=== PATIENT | female | born 1980 | race Asian ===

== ENCOUNTER 2018-02-22 13:13 | Emergency (ER) | payer OTHER ==
[~2018-02-22] VITALS: Ht 157.5 cm; Wt 60.8 kg
[2018-02-22 13:27] VITALS: BP_SYST 133
[2018-02-22 14:11] LABS: BILIRUBIN,URINE NEGATIVE (NEGATIVE); BLOOD, URINE NEGATIVE (NEGATIVE); CLARITY/URINE CLEAR (CLEAR); COLOR,URINE YELLOW (YELLOW); GLUCOSE,URINE NEGATIVE (NEGATIVE); KETONES,URINE NEGATIVE (NEGATIVE); LEUKOCYTE ESTERASE ,URINE NEGATIVE (NEGATIVE); NITRITE, URINE NEGATIVE (NEGATIVE); PROTEIN URINE NEGATIVE (NEGATIVE); UROBILINOGEN,URINE 0.2 (0.2-1.0)
[2018-02-22 14:17] LABS: CALCIUM 9.2 mg/dL (8.4-11.0); CREATININE 0.85 mg/dL (0.55-1.30); POTASSIUM 4.2 mmol/L (3.5-5.1)
[2018-02-22 14:28] LABS: ALBUMIN 3.8 g/dL (3.4-4.8); TOTAL BILIRUBIN 0.3 mg/dL (0.0-1.0)
[2018-02-22 14:30] LABS: HEMATOCRIT 38.3 % (36-48); HEMOGLOBIN 12.6 g/dL (12.0-16.0); MEAN CORPUSCULAR HEMOGLOBIN 29 pg (27-31); MEAN CORPUSCULAR HGB CONC 33 % (32-36); MEAN CORPUSCULAR VOLUME 89 fL (79.0-98.0); PLATELET COUNT (AUTO) 291 K/uL (130-430); RED CELL DISTRIBUTION WIDTH 12.6 % (9.0-15.0); WHITE BLOOD COUNT (AUTO) 8.2 K/uL (4.8-10.8)
[2018-02-22 15:01] LABS: BAND % (MANUAL) 3 % (0-6); BASOPHILS % (MANUAL) 0 % (0-2); EOSINOPHILS % (MANUAL) 0 % (0-7); LYMPHOCYTES % (MANUAL) 32 % (20-46); MONOCYTES % (MANUAL) 5 % (0-11)
[2018-02-22 15:43] VITALS: BP_SYST 133
== END 2018-02-22 15:43 | disposition home or self-care (01) ==
LOC: SED 13:13
DX: O34.81 Maternal care for other abnormalities of pelvic organs, first trimester (principal); R19.09 Other intra-abdominal and pelvic swelling, mass and lump; R03.0 Elevated blood-pressure reading, without diagnosis of hypertension; Z3A.01 Less than 8 weeks gestation of pregnancy
CPT/HCPCS: 36415; 76801; 76817; 80053; 81003; 84702-TC; 85007; 85027; 86901; 99285

== ENCOUNTER 2018-02-24 11:45 | Outpatient (CLI) | payer OTHER | END 2018-02-24 18:53 | disposition home or self-care (01) | LOC: SLB 11:45 | PROVIDERS: ATTEND Specialist | DX: N92.6 Irregular menstruation, unspecified (principal) | CPT/HCPCS: 36415; 84144; 84702-TC ==

== ENCOUNTER 2018-03-01 16:40 | Outpatient (CLI) | payer OTHER | END 2018-03-01 18:59 | disposition home or self-care (01) | LOC: SLB 16:40 | PROVIDERS: ATTEND Specialist | DX: O02.1 Missed abortion (principal) | CPT/HCPCS: 36415; 84702-TC; 84703 ==

== ENCOUNTER 2018-03-16 19:07 | Outpatient (CLI) | payer OTHER ==
[2018-03-16 19:23] LABS: HEMATOCRIT 41.5 % (36-48); HEMOGLOBIN 13.2 g/dL (12.0-16.0)
== END 2018-03-16 20:47 | disposition home or self-care (01) ==
LOC: SLB 19:07
PROVIDERS: ATTEND Specialist
DX: O03.9 Complete or unspecified spontaneous abortion without complication (principal)
CPT/HCPCS: 36415; 83051; 84702-TC; 85014-TC

== ENCOUNTER 2018-05-12 10:00 | Day surgery (SDC) | payer OTHER ==
[2018-05-11 13:17] LABS: HEMATOCRIT 39.7 % (36-48); HEMOGLOBIN 13.1 g/dL (12.0-16.0); MEAN CORPUSCULAR HEMOGLOBIN 30 pg (27-31); MEAN CORPUSCULAR HGB CONC 33 % (32-36); MEAN CORPUSCULAR VOLUME 89 fL (79.0-98.0); RED BLOOD CELL COUNT(AUTO) 4.46 MIL/uL (4.2-6.2); WHITE BLOOD COUNT (AUTO) 7.5 K/uL (4.8-10.8)
[2018-05-11 13:18] LABS: BASOPHILS % (AUTO) 0.4 % (0.0-2.0); EOSINOPHILS # (AUTO) 0.2 K/uL (0.0-0.4); EOSINOPHILS % (AUTO) 2.3 % (0.0-4.0); LYMPHOCYTES # (AUTO) 2.1 K/uL (1.0-5.5); LYMPHOCYTES % (AUTO) 28.7 % (20.5-51.5); MONOCYTES # (AUTO) 0.7 K/uL (0.0-1.0); MONOCYTES % (AUTO) 8.8 % (1.7-9.3); NEUTROPHILS # (AUTO) 4.5 K/uL (1.8-7.7); NEUTROPHILS % (AUTO) 59.8 % (40.0-70.0); PLATELET COUNT (AUTO) 270 K/uL (130-430); RED CELL DISTRIBUTION WIDTH 12.6 % (9.0-15.0)
[2018-05-11 13:55] LABS: CLARITY/URINE CLEAR (CLEAR); COLOR,URINE YELLOW (YELLOW); GLUCOSE,URINE NEGATIVE (NEGATIVE); KETONES,URINE NEGATIVE (NEGATIVE); PROTEIN URINE NEGATIVE (NEGATIVE)
[2018-05-11 13:56] LABS: BILIRUBIN,URINE NEGATIVE (NEGATIVE); BLOOD, URINE TRACE (NEGATIVE); LEUKOCYTE ESTERASE ,URINE NEGATIVE (NEGATIVE); NITRITE, URINE NEGATIVE (NEGATIVE); UROBILINOGEN,URINE 0.2 (0.2-1.0)
[2018-05-11 14:16] LABS: BACTERIA,URINE FEW /HPF (None Seen); RBC,URINE 0-3 /HPF (0-3); WBC,URINE 0-3 /HPF (0-3)
[2018-05-11 14:17] LABS: CALCIUM OXALATE CRYSTALS,UR 0-10 /HPF (None Seen); MUCUS,URINE None Seen /LPF (None Seen)
[~2018-05-12] VITALS: Ht 157.5 cm; Wt 60.8 kg
[~2018-05-12 10:00] MED LIST: CEFAZOLIN SOD 1 GM in D5W 50 ML IV ONE
[2018-05-12] MEDS ORDERED: WATER FOR IRRIGATION,STERILE 1,000 ML IRRIG.SOLN IR ONE (17:55)
[2018-05-12] MEDS ORDERED: fentaNYL CITRATE/PF 100 MCG/2 ML AMP IVP ONE (17:55)
[2018-05-12] MEDS ORDERED: ceFAZolin SODIUM 1 GM VIAL IV ONE (17:55)
[2018-05-12] MEDS ORDERED: OXYTOCIN 10 UNIT/ML VIAL IV ONE (17:55)
[2018-05-12] MEDS ORDERED: ROPIVACAINE HCL/PF 0.2% (NAROPIN) 200 ML PLAST..BAG EP ONE (17:55)
[2018-05-12] MEDS ORDERED: MIDAZOLAM HCL 5 MG/5 ML VIAL IVP ONE (17:55)
[2018-05-12] MEDS ORDERED: SEVOFLURANE 15 MIN GAS INH ONE (17:55)
[2018-05-12] MEDS ORDERED: ONDANSETRON HCL 4 MG/2 ML VIAL IVP ONE (17:55)
[2018-05-12] MEDS ORDERED: NS 1000 ML IV.SOLN IV ONE (17:55)
[2018-05-12] MEDS ORDERED: BUPIVACAINE /PF 0.5% 30 ML VIAL INJ ONE (17:55)
[2018-05-12] MEDS ORDERED: ROCURONIUM BROMIDE 10 MG/ML (ZEMURON) IV ONE (17:55)
[2018-05-12] MEDS ORDERED: PROPOFOL 200MG/ 20ML VIAL (DIPRIVAN) IV ONE (17:55)
[2018-05-12] MEDS ORDERED: LR 1,000 ML IV.SOLN IV ONE (17:55)
[2018-05-12] MEDS ORDERED: GLYCOPYRROLATE 1 MG/5 ML VIAL IJ ONE (17:55)
[2018-05-12] MEDS ORDERED: PHENYLEPHRINE HCL 10 MG/ML VIAL (NEOSYNEPHRINE) IV ONE (17:55)
[2018-05-12] MEDS ORDERED: LIDOCAINE 2%, 20 ML MDV INJ ONE (17:55)
[2018-05-12] MEDS ORDERED: KETOROLAC TROMETHAMINE 30 MG VIAL IVP ONE (17:55)
[2018-05-12] MEDS ORDERED: KETOROLAC TROMETHAMINE 30 MG VIAL IVP PRN (18:45)
[2018-05-12] MEDS ORDERED: fentaNYL CITRATE/PF 100 MCG/2 ML AMP IVP PRN ×2 (18:45)
[2018-05-12] MEDS ORDERED: ONDANSETRON HCL 4 MG/2 ML VIAL IVP PRN ×2 (18:45→20:15)
[2018-05-12] MEDS ORDERED: OXYCODONE/ACETAMINOPHEN 5-325 TABLET PO PRN ×2 (20:15)
[2018-05-12] MEDS ORDERED: HYDROcodone/ACETAMIN 5-325 MG TAB (NORCO/ VICODIN) PO PRN (20:15)
[2018-05-12] MEDS ORDERED: TEMAZEPAM 15 MG CAPSULE PO SCH (21:00)
[2018-05-12] MEDS ORDERED: SIMETHICONE 80 MG TAB.CHEW PO SCH (21:00)
[2018-05-12] MEDS ORDERED: KETOROLAC TROMETHAMINE 30 MG VIAL ONE (21:19)
[2018-05-12 21:30] VITALS: BP_SYST 124
[2018-05-12 23:53] VITALS: BP_SYST 101
[2018-05-13 07:50] VITALS: BP_SYST 104
[2018-05-13 08:56] VITALS: BP_SYST 106
[2018-05-13] MEDS ORDERED: PERC10 GT (09:02)
== END 2018-05-13 10:30 | disposition home or self-care (01) ==
LOC: SDS 10:00 → SMU 10:00 → SDS 05-13 10:30
PROVIDERS: ATTEND Specialist
DX: D25.1 Intramural leiomyoma of uterus (principal); D25.0 Submucous leiomyoma of uterus; D25.2 Subserosal leiomyoma of uterus; D26.9 Other benign neoplasm of uterus, unspecified; N83.8 Other noninflammatory disorders of ovary, fallopian tube and broad ligament; N94.89 Other specified conditions associated with female genital organs and menstrual cycle; N83.202 Unspecified ovarian cyst, left side; N83.201 Unspecified ovarian cyst, right side; G43.909 Migraine, unspecified, not intractable, without status migrainosus; Z79.899 Other long term (current) drug therapy
CPT/HCPCS: 36415; 58545; 58662; 81000; 84702; 85025; 88305; C1727; J0690; J1885; J2001; J2250; J2370; J2405; J2590; J2704; J3010; J3490; J7030; J7060; J7120; E0190

== ENCOUNTER 2018-06-26 12:41 | Outpatient (CLI) | payer OTHER ==
[~2018-06-26 12:41] MED LIST changes: -CEFAZOLIN SOD 1 GM in D5W 50 ML IV ONE; +PERC10 GT
[2018-06-27 08:20] LABS: ESTRADIOL 59.8 pg/mL (.); FOLLICLE STIMULATION HORMONE 4.1 mIU/mL (.)
== END 2018-06-26 20:20 | disposition home or self-care (01) ==
LOC: SLB 12:41
PROVIDERS: ATTEND Specialist
DX: N92.6 Irregular menstruation, unspecified (principal)
CPT/HCPCS: 36415; 82670; 83001

== ENCOUNTER 2018-11-15 16:11 | Outpatient (CLI) | payer OTHER | END 2018-11-15 21:12 | disposition home or self-care (01) | LOC: SLB 16:11 | PROVIDERS: ATTEND Physician Assistant | DX: N91.2 Amenorrhea, unspecified (principal) | CPT/HCPCS: 36415; 84144; 84702-TC ==

== ENCOUNTER 2019-11-28 10:11 | Outpatient (CLI) | payer OTHER | END 2019-11-28 20:20 | disposition home or self-care (01) | LOC: SLB 10:11 | PROVIDERS: ATTEND Specialist | DX: N93.8 Other specified abnormal uterine and vaginal bleeding (principal) | CPT/HCPCS: 88305 ==

== ENCOUNTER 2020-10-05 13:36 | Outpatient (CLI) | payer OTHER | END 2020-10-05 20:00 | disposition home or self-care (01) | LOC: SLB 13:36 | PROVIDERS: ATTEND Specialist | DX: N85.8 Other specified noninflammatory disorders of uterus (principal); N97.0 Female infertility associated with anovulation; N91.2 Amenorrhea, unspecified; N92.6 Irregular menstruation, unspecified | CPT/HCPCS: 88305 ==

== ENCOUNTER 2020-12-05 15:46 | Outpatient (CLI) | payer OTHER | END 2020-12-05 21:07 | disposition home or self-care (01) | LOC: SLB 15:46 | PROVIDERS: ATTEND Specialist | DX: N91.2 Amenorrhea, unspecified (principal) | CPT/HCPCS: 36415; 84144; 84702 ==